=== PATIENT | male | born 1935 | race Caucasian/White ===

== ENCOUNTER 2018-10-25 14:37 | Emergency (ER) | payer MEDICARE, BC ==
[2018-10-25 14:57] VITALS: BP 116/67
[2018-10-25] MEDS ORDERED: LIDOCAINE 1%-EPI 1:100000 30 ML MDV SUBQ STA (15:17)
[2018-10-25] MEDS ORDERED: TETANUS/DIPHTHERIA/PERTUSSIS 0.5 ML SYRINGE IM ONE (15:17)
[2018-10-25] MEDS ORDERED: LIDOCAINE 1%-EPI 1:100000 30 ML MDV ONE (15:22)
--- NOTE | 2018-10-25 15:41 | ED Physician Documentation ---
PD HPI UPPER EXT INJURY - Stated complaint Stated Complaint: FINGER LAC - Chief complaint Chief Complaint: Laceration - History obtained from History obtained from: Patient, Family (daughter) - History of Present Illness Location: Left, Finger (thmb) Type of injury: Laceration Where injury occurred: Home Timing - onset: How many hours ago (4) Associated symptoms: No: Weakness, Numbness - Additonal information Additional information: The patient is an 83-year-old male who cut his left thumb on justa metal about 4 hours prior to arrival. He is right hand dominant. Last tetanus booster is unknown. He denies any other current injuries. Review of Systems Constitutional: denies: Fever Skin: reports: Laceration (s) (left thumb.) Neurologic: denies: Focal weakness, Numbness PD PAST MEDICAL HISTORY - Past Medical History Endocrine/Autoimmune: None - Present Medications Home Medications: Ambulatory Orders Medication Instructions Recorded Confirmed Donepezil HCl [Aricept] 10/25/18 Lisinopril 10/25/18 10/25/18 Loratadine [Allergy] 10/25/18 10/25/18 Memantine HCl [Namenda] 10/25/18 Sertraline [Zoloft] 10/25/18 - Allergies Allergies/Adverse Reactions: Allergies Allergy/AdvReac Type Severity Reaction Status Date / Time crab Allergy Emesis Verified 10/25/18 14:52 Opioids - Morphine Analogues AdvReac Nausea Verified 10/25/18 14:52 - Social History Does the pt smoke?: No PD ED PE NORMAL - Vitals Vital signs reviewed: Yes (normal) - General General: Alert and oriented X 3, Well developed/nourished - HEENT HEENT: Atraumatic - Respiratory Respiratory: No respiratory distress - Derm Derm: No rash - Extremities Extremities: Other (There is a 2 cm irregular-shaped laceration across the dorsoradial aspect of the left thumb. Exploration reveals no involvement of extensor tendon. Distal neurovascular is intact.) - Neuro Neuro: Alert and oriented X 3, No motor deficit, No sensory deficit Results - Vitals Vitals: Oxygen O2 Source Room air Procedures - Laceration (location) left thumb Length in cm: 2 Wound type: Curved, Clean Neurovascular status: Sensory intact, Motor intact, Vascular intact Tendon involvement: Tendon intact Anesthesia: Lidocaine 1% with epi Wound Preparation: Hibiclens, Irrigated copiously NS, Wound explored, To the base. No: FB identified Skin layer closure: Nylon, Interrupted, Size #-0 - enter number (5), Sutures - enter # (6) Other: Patient tolerated well, No complications, Neurovascular intact, Dressing applied, Tetanus booster given Complexity: Simple PD MEDICAL DECISION MAKING - ED course Complexity details: considered differential, d/w patient, d/w family ED course: The patient's presentation is significant for a left thumb laceration. Treatment in the emergency department included administration of tetanus booster. The laceration was repaired with 5-0 nylon after administration of topical anesthetic and thorough cleaning of the wound. Imaging studies of the thumb are not clinically indicated based on physical examination. I discussed with him and his daughter the expected course of healing, timing for suture removal, as well as potentially worrisome signs or symptoms that should prompt reevaluation. Departure - Departure Disposition: 01 Home, Self Care Clinical Impression: Laceration of thumb Qualifiers: Encounter type: initial encounter Damage to nail status: without damage Foreign body presence: without foreign body Laterality: left Qualified Code(s): S61.012A - Laceration without foreign body of left thumb without damage to nail, initial encounter Condition: Stable Instructions: ED Laceration Hand Follow-Up: Juarez Coronado DO [Primary Care Provider] - Comments: Keep the wound clean. Apply antibiotic ointment daily. You can use Tylenol or ibuprofen if needed for discomfort. Follow-up for suture removal in 10-12 days. Follow-up sooner if you develop any sign of infection, or otherwise worsening symptoms. Discharge Date/Time: 10/25/18 15:56
== END 2018-10-25 15:56 | disposition home or self-care (01) ==
LOC: ED 14:37
DX: S61.012A Laceration without foreign body of left thumb without damage to nail, initial encounter (principal); W45.8XXA Other foreign body or object entering through skin, initial encounter; Z23 Encounter for immunization
CPT/HCPCS: 12001; 90471; 99282; 99283

== ENCOUNTER 2023-03-02 11:33 | Outpatient (CLI) | payer MEDICARE, BC ==
--- NOTE | 2023-03-02 15:13 | XRAY Report ---
PROCEDURE: Cervical Spine Complete INDICATIONS: CERVICAL RADICULOPATHY TECHNIQUE: 5 views of the cervical spine acquired. COMPARISON: None. FINDINGS: Bones: No fractures or dislocations to the C7-T1 level. Oblique images demonstrate no bony foramina l stenoses. Multilevel moderate to severe degenerative disc space narrowing is present. Multilevel an terior osteophytes as well as uncovertebral hypertrophy are present. Oblique views demonstrate multil evel moderate to severe foraminal narrowing bilaterally. Soft tissues: No prevertebral soft tissue swelling. IMPRESSION: Multilevel degenerative disc and foraminal narrowing as above. Reviewed by: Jayla Cheatham MD on 03/02/2023 3:12 PM PDT Approved by: Jayla Cheatham MD on 03/02/2023 3:12 PM PDT Station ID: [id number]
== END 2023-03-02 11:34 | disposition home or self-care (01) ==
LOC: DI 11:33
PROVIDERS: ATTEND Family Medicine
DX: M47.22 Other spondylosis with radiculopathy, cervical region (principal); M50.10 Cervical disc disorder with radiculopathy, unspecified cervical region

== ENCOUNTER 2023-08-16 21:36 | Outpatient (CLI) | payer MEDICARE, BC | END 2023-08-16 23:59 | disposition short-term general hospital (02) | LOC: EMS 21:36 | DX: S00.81XA Abrasion of other part of head, initial encounter (principal); S69.91XA Unspecified injury of right wrist, hand and finger(s), initial encounter; R07.9 Chest pain, unspecified; W01.0XXA Fall on same level from slipping, tripping and stumbling without subsequent striking against object, initial encounter; Y93.K1 Activity, walking an animal; Y92.481 Parking lot as the place of occurrence of the external cause | CPT/HCPCS: A0425; A0429; A0888 ==

== ENCOUNTER 2023-08-21 11:22 | Outpatient (CLI) | payer MEDICARE, BC ==
--- NOTE | 2023-08-21 13:04 | XRAY Report ---
PROCEDURE: Knee 3 View LT INDICATIONS: CONTUSION OF KNEE TECHNIQUE: 3 views of the left knee(s) were acquired. COMPARISON: None. 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 Hardware appears intact. No acute fracture or dislocation identified. Soft tissues: No knee joint effusion. No suspicious soft tissue calcifications. IMPRESSION: No acute bony abnormality. If there remains a high clinical concern for fracture, consider cross-sect ional imaging now. If pain persists, consider repeat x-ray in 10-14 days or cross-sectional imaging. Reviewed by: Enrique Stroud MD on 08/21/2023 1:03 PM PDT Approved by: Enrique Stroud MD on 08/21/2023 1:03 PM PDT Station ID: [id number]
--- NOTE | 2023-08-21 13:07 | XRAY Report ---
PROCEDURE: Chest 2 View X-Ray INDICATIONS: CHEST WALL PAIN TECHNIQUE: 2 views of the chest were acquired. COMPARISON: None. FINDINGS: Surgical changes and devices: None. Lungs and pleura: No suspicious focal airspace opacity. No definite pleural effusion or pneumothorax . Mediastinum: Cardiac silhouette is enlarged. Bones and chest wall: No suspicious bony lesions. Overlying soft tissues appear unremarkable. IMPRESSION: Cardiac silhouette is enlarged without definite evidence of pulmonary vascular congestion at this courtney e. Reviewed by: Enrique Stroud MD on 08/21/2023 1:06 PM PDT Approved by: Enrique Stroud MD on 08/21/2023 1:06 PM PDT Station ID: [id number]
== END 2023-08-21 11:23 | disposition home or self-care (01) ==
LOC: DI 11:22
PROVIDERS: ATTEND Registered Nurse
DX: R07.89 Other chest pain (principal); I51.7 Cardiomegaly; S80.02XA Contusion of left knee, initial encounter; S41.112A Laceration without foreign body of left upper arm, initial encounter; S62.91XA Unspecified fracture of right hand, initial encounter for closed fracture; S01.81XA Laceration without foreign body of other part of head, initial encounter